=== PATIENT | female | born 1930 | race Caucasian/White ===

== ENCOUNTER 2019-06-21 16:53 | Inpatient (IN) | payer MEDICARE ==
[~2019-06-21] VITALS: Ht 157.5 cm; Wt 80.3 kg
[2019-06-21 16:00] VITALS: BP 138/64
[2019-06-21] MEDS ORDERED: ACETAMINOPHEN 650MG/20.3ML UDC PO PRN (17:30)
[2019-06-21 17:54] VITALS: BP 138/64
[2019-06-21] MEDS ORDERED: CARV6.2548 PO (18:40)
[2019-06-21] MEDS ORDERED: ALLO100T PO (18:40)
[2019-06-21] MEDS ORDERED: MENT3.5O TP (18:40)
[2019-06-21] MEDS ORDERED: AMLO10TA80 MT (18:40)
[2019-06-21] MEDS ORDERED: COLC0.6C3 PO (18:42)
[2019-06-21] MEDS ORDERED: FURO40TA5 PO (18:42)
[2019-06-21] MEDS ORDERED: DICL1ADH11 TD (18:42)
[2019-06-21] MEDS ORDERED: APIX2.5T PO (18:42)
[2019-06-21] MEDS ORDERED: MEGE40TA27 MT (18:43)
[2019-06-21] MEDS ORDERED: TIOT18CA3 IH (18:46)
[2019-06-21] MEDS ORDERED: ASCO500P18 PO (18:46)
[2019-06-21] MEDS ORDERED: SODI650T PO (18:46)
[2019-06-21] MEDS ORDERED: LEVA15HF4 IH (18:46)
[2019-06-21 20:00] VITALS: BP 141/59
[2019-06-21] MEDS: ALBUTEROL (0.083%) 2.5MG/3ML NEB HHN SCH (20:30)
[2019-06-21] MEDS: HYDRALAZINE HCL 100MG TABLET PO SCH (20:58)
[2019-06-21] MEDS: CARVEDILOL 6.25 MG TABLET PO SCH (20:58)
[2019-06-22 07:39] LABS: BASOPHILS % 0.6 % (0.0-2.0); EOSINOPHILS % 0.5 % (0.0-5.0); HEMATOCRIT. 26.5 % (36.0-48.0); LYMPHOCYTES % 9.3 % (20.0-50.0); MEAN CORPUSCULAR HEMOGLOBIN 34.1 pg (28.0-32.0); MEAN CORPUSCULAR VOLUME 100.3 fL (81.0-99.0); MEAN PLATELET VOLUME 8.2 fl (7.4-10.4); MONOCYTES % 5.5 % (2.0-8.0); NEUTROPHILS % 84.1 % (40.0-76.0); PLATELET 230 x1000/uL (130-400); RED BLOOD CELL COUNT 2.64 mill/uL (4.2-5.4); RED CELL DISTRIBUTION WIDTH 15.8 % (11.6-14.6)
[2019-06-22 07:46] LABS: CHLORIDE 110 mEq/L (98-107)
[2019-06-22] MEDS: ALBUTEROL (0.083%) 2.5MG/3ML NEB HHN SCH ×2 (08:06→16:44)
[2019-06-22] MEDS: HYDRALAZINE HCL 100MG TABLET PO SCH ×2 (08:06→20:43)
[2019-06-22] MEDS: SODIUM BICARBONATE 650 MG TABLET PO SCH ×3 (08:06→16:21)
[2019-06-22] MEDS: ALLOPURINOL 100 MG TABLET PO SCH (08:06)
[2019-06-22] MEDS: AMLODIPINE 10MG TABLET PO SCH (08:07)
[2019-06-22] MEDS: CARVEDILOL 6.25 MG TABLET PO SCH ×2 (08:07→20:42)
[2019-06-22 08:41] VITALS: BP 124/73
[2019-06-22] MEDS ORDERED: MEGESTROL ACETATE 400 MG/10 ML UDC PO SCH (09:00)
[2019-06-22] MEDS ORDERED: UMECLIDINIUM BROMIDE 1 INH BLST.W.DEV IH SCH (09:00)
[2019-06-22] MEDS: APIXABAN 2.5 MG TABLET PO SCH (16:22)
[2019-06-22 20:00] VITALS: BP 152/68
[2019-06-22 20:46] LABS: CLARITY URINE CLEAR (CLEAR); COLOR URINE YELLOW (YELLOW); KETONES URINE NEGATIVE (NEGATIVE); LEUKOCYTE ESTERASE URINE 2+ (NEGATIVE); NITRITE URINE NEGATIVE (NEGATIVE); OCCULT BLOOD URINE NEGATIVE (NEGATIVE); PH URINE 5.5 (4.5-8.0); PROTEIN URINE 1+ (NEGATIVE); SPECIFIC GRAVITY URINE 1.014 (1.005-1.030); UROBILINOGEN URINE 0.2 E.U./dL (0.2-1.0)
[2019-06-23] MEDS: MEGESTROL ACETATE 400 MG/10 ML UDC PO SCH ×3 (06:08→17:09)
[2019-06-23 07:13] LABS: HEMOGLOBIN. 8.7 g/dL (12.0-16.0); MEAN CORPUSCULAR HEMOGLOBIN 33.5 pg (28.0-32.0); MEAN CORPUSCULAR VOLUME 100.2 fL (81.0-99.0); PLATELET 234 x1000/uL (130-400); RED CELL DISTRIBUTION WIDTH 15.7 % (11.6-14.6)
[2019-06-23 07:23] LABS: CHLORIDE 111 mEq/L (98-107)
[2019-06-23 07:37] LABS: FOLIC ACID (FOLATE) SERUM 19.1 ng/mL (>5.38)
[2019-06-23 07:43] LABS: PHOSPHORUS 4.1 mg/dL (2.5-4.9)
[2019-06-23 07:44] LABS: LDL CHOLESTEROL 87 mg/dL (5-100)
[2019-06-23 07:47] LABS: HDL CHOLESTEROL 22 mg/dL (40-59); TOTAL IRON BINDING CAPACITY 382 ug/dL (250-450)
[2019-06-23 08:00] VITALS: BP 170/78
[2019-06-23] MEDS: ALBUTEROL (0.083%) 2.5MG/3ML NEB HHN SCH ×2 (09:37→17:23)
[2019-06-23] MEDS: HYDRALAZINE HCL 100MG TABLET PO SCH ×2 (09:51→21:31)
[2019-06-23] MEDS: AMLODIPINE 10MG TABLET PO SCH (09:52)
[2019-06-23] MEDS: ALLOPURINOL 100 MG TABLET PO SCH (09:52)
[2019-06-23] MEDS: SODIUM BICARBONATE 650 MG TABLET PO SCH ×3 (09:52→17:11)
[2019-06-23] MEDS: APIXABAN 2.5 MG TABLET PO SCH ×2 (09:52→17:12)
[2019-06-23] MEDS: CARVEDILOL 6.25 MG TABLET PO SCH ×2 (09:53→21:32)
[2019-06-23 12:52] LABS: PLATELET ESTIMATE NORMAL
[2019-06-23] MEDS ORDERED: LEVOFLOXACIN 250MG TABLET PO SCH (16:00)
[2019-06-23] MEDS ORDERED: SPIR25TA6 PO (16:03)
[2019-06-23] MEDS ORDERED: SACU1TAB7 PO (16:03)
[2019-06-23] MEDS ORDERED: HYDR100T26 PO (16:03)
[2019-06-23] MEDS: FERROUS SULFATE 325MG TABLET PO SCH (17:12)
[2019-06-23] MEDS: DOCUSATE SODIUM 100MG CAPSULE PO SCH (17:12)
[2019-06-23] MEDS: CYANOCOBALAMIN 1000MCG/ML VIAL IM SCH (17:13)
[2019-06-23] MEDS: LIDOCAINE 5% PATCH TOP SCH (17:14)
[2019-06-23] MEDS ORDERED: LACTULOSE 20G/30ML UDC PO PRN (20:45)
[2019-06-23 22:00] VITALS: BP 131/54
[2019-06-24 05:40] LABS: HEMATOCRIT. 25.7 % (36.0-48.0); HEMOGLOBIN. 8.8 g/dL (12.0-16.0); MEAN CORPUSCULAR HEMOGLOBIN 34.1 pg (28.0-32.0); PLATELET 220 x1000/uL (130-400); RED BLOOD CELL COUNT 2.57 mill/uL (4.2-5.4); RED CELL DISTRIBUTION WIDTH 15.7 % (11.6-14.6)
[2019-06-24] MEDS: ALBUTEROL (0.083%) 2.5MG/3ML NEB HHN SCH ×2 (07:40→14:53)
[2019-06-24] MEDS: CYANOCOBALAMIN 1000MCG/ML VIAL IM SCH (08:25)
[2019-06-24] MEDS: SODIUM BICARBONATE 650 MG TABLET PO SCH ×3 (08:25→16:39)
[2019-06-24] MEDS: MEGESTROL ACETATE 400 MG/10 ML UDC PO SCH ×2 (08:25→16:39)
[2019-06-24] MEDS: ASCORBIC ACID 500 MG TABLET PO SCH (08:26)
[2019-06-24] MEDS: AMLODIPINE 10MG TABLET PO SCH (08:26)
[2019-06-24] MEDS: HYDRALAZINE HCL 100MG TABLET PO SCH ×2 (08:26→21:12)
[2019-06-24] MEDS: FERROUS SULFATE 325MG TABLET PO SCH ×3 (08:26→16:39)
[2019-06-24] MEDS: CARVEDILOL 6.25 MG TABLET PO SCH ×2 (08:26→21:11)
[2019-06-24] MEDS: DOCUSATE SODIUM 100MG CAPSULE PO SCH ×2 (08:27→16:40)
[2019-06-24] MEDS: ALLOPURINOL 100 MG TABLET PO SCH (08:27)
[2019-06-24] MEDS: APIXABAN 2.5 MG TABLET PO SCH ×2 (08:27→16:39)
[2019-06-24 08:36] VITALS: BP 127/91
[2019-06-24] MEDS: LIDOCAINE 5% PATCH TOP SCH (09:00)
[2019-06-24] MEDS ORDERED: SORBITOL 70% SOLN 30ML PO ONE (09:45)
[2019-06-24] MEDS ORDERED: BISACODYL 10MG SUPP PR ONE (09:45)
[2019-06-24] MEDS ORDERED: SORBITOL 70% SOLN 30ML PO SCH (10:30)
[2019-06-24] MEDS ORDERED: BISACODYL 10MG SUPP PR SCH (10:30)
[2019-06-24 10:34] LABS: PLATELET ESTIMATE NORMAL
[2019-06-24 20:00] VITALS: BP 140/58
[2019-06-24] MEDS: POLYETHYLENE GLYCOL 3350 (17GM) 1 DOSE PACK PO SCH (21:00)
[2019-06-25 06:13] LABS: BASOPHILS % 0.5 % (0.0-2.0); EOSINOPHILS % 0.5 % (0.0-5.0); HEMOGLOBIN. 8.8 g/dL (12.0-16.0); LYMPHOCYTES % 8.1 % (20.0-50.0); MEAN CORPUSCULAR HEMOGLOBIN 33.9 pg (28.0-32.0); MEAN CORPUSCULAR VOLUME 100.2 fL (81.0-99.0); MEAN PLATELET VOLUME 8.1 fl (7.4-10.4); MONOCYTES % 8.5 % (2.0-8.0); NEUTROPHILS % 82.4 % (40.0-76.0); PLATELET 201 x1000/uL (130-400); RED CELL DISTRIBUTION WIDTH 15.6 % (11.6-14.6)
[2019-06-25 08:10] VITALS: BP 143/69
[2019-06-25] MEDS: MEGESTROL ACETATE 400 MG/10 ML UDC PO SCH ×2 (08:30→16:00)
[2019-06-25] MEDS: CARVEDILOL 6.25 MG TABLET PO SCH ×2 (08:30→22:30)
[2019-06-25] MEDS: ALLOPURINOL 100 MG TABLET PO SCH (08:31)
[2019-06-25] MEDS: ASCORBIC ACID 500 MG TABLET PO SCH (08:31)
[2019-06-25] MEDS: DOCUSATE SODIUM 100MG CAPSULE PO SCH ×2 (08:31→16:00)
[2019-06-25] MEDS: SODIUM BICARBONATE 650 MG TABLET PO SCH ×3 (08:31→16:00)
[2019-06-25] MEDS: HYDRALAZINE HCL 100MG TABLET PO SCH ×2 (08:31→21:00)
[2019-06-25] MEDS: AMLODIPINE 10MG TABLET PO SCH (08:31)
[2019-06-25] MEDS: FERROUS SULFATE 325MG TABLET PO SCH ×3 (08:31→16:00)
[2019-06-25] MEDS: APIXABAN 2.5 MG TABLET PO SCH ×2 (08:31→18:44)
[2019-06-25] MEDS: LIDOCAINE 5% PATCH TOP SCH (09:00)
[2019-06-25] MEDS: ALBUTEROL (0.083%) 2.5MG/3ML NEB HHN SCH ×2 (09:09→19:56)
[2019-06-25] MEDS: [UNRECOGNIZED DRUG - REMARK] ORI SCH (14:51)
[2019-06-25 20:00] VITALS: BP 142/70
[2019-06-25] MEDS: LINEZOLID 600MG TABLET PO SCH (22:29)
[2019-06-25] MEDS: POLYETHYLENE GLYCOL 3350 (17GM) 1 DOSE PACK PO SCH (22:29)
[2019-06-26 08:00] VITALS: BP 154/67
[2019-06-26] MEDS: LIDOCAINE 5% PATCH TOP SCH (09:00)
[2019-06-26] MEDS: ALBUTEROL (0.083%) 2.5MG/3ML NEB HHN SCH ×2 (10:25→16:35)
[2019-06-26] MEDS: LINEZOLID 600MG TABLET PO SCH ×2 (10:41→20:48)
[2019-06-26] MEDS: AMLODIPINE 10MG TABLET PO SCH (10:41)
[2019-06-26] MEDS: CARVEDILOL 6.25 MG TABLET PO SCH ×2 (10:41→21:00)
[2019-06-26] MEDS: SODIUM BICARBONATE 650 MG TABLET PO SCH ×3 (10:42→16:41)
[2019-06-26] MEDS: DOCUSATE SODIUM 100MG CAPSULE PO SCH ×2 (10:42→16:41)
[2019-06-26] MEDS: HYDRALAZINE HCL 100MG TABLET PO SCH ×2 (10:42→20:48)
[2019-06-26] MEDS: FERROUS SULFATE 325MG TABLET PO SCH ×3 (10:43→16:41)
[2019-06-26] MEDS: ASCORBIC ACID 500 MG TABLET PO SCH (10:43)
[2019-06-26] MEDS: APIXABAN 2.5 MG TABLET PO SCH ×2 (10:43→16:41)
[2019-06-26] MEDS: ALLOPURINOL 100 MG TABLET PO SCH (10:44)
[2019-06-26] MEDS: MEGESTROL ACETATE 400 MG/10 ML UDC PO SCH ×2 (10:45→16:41)
[2019-06-26] MEDS: [UNRECOGNIZED DRUG - REMARK] ORI SCH (11:25)
[2019-06-26] MEDS: LACTULOSE 20G/30ML UDC PO SCH ×2 (11:31→16:41)
[2019-06-26] MEDS ORDERED: BISACODYL 10MG SUPP PR PRN (14:00)
[2019-06-26] MEDS ORDERED: SORBITOL 70% SOLN 30ML PO NR (17:00)
[2019-06-26] MEDS ORDERED: BISACODYL 10MG SUPP PR NR (17:00)
[2019-06-26 20:00] VITALS: BP 133/56
[2019-06-26] MEDS: POLYETHYLENE GLYCOL 3350 (17GM) 1 DOSE PACK PO SCH (20:47)
[2019-06-27] MEDS ORDERED: LACTULOSE 20G/30ML UDC PO SCH (02:15)
[2019-06-27 06:46] LABS: BASOPHILS % 0.5 % (0.0-2.0); HEMATOCRIT. 25.8 % (36.0-48.0); HEMOGLOBIN. 8.8 g/dL (12.0-16.0); LYMPHOCYTES % 7.8 % (20.0-50.0); MEAN CORPUSCULAR HEMOGLOBIN 34.3 pg (28.0-32.0); MEAN CORPUSCULAR VOLUME 100.1 fL (81.0-99.0); MEAN PLATELET VOLUME 8.5 fl (7.4-10.4); MONOCYTES % 9.1 % (2.0-8.0); NEUTROPHILS % 81.6 % (40.0-76.0); PLATELET 193 x1000/uL (130-400); RED BLOOD CELL COUNT 2.58 mill/uL (4.2-5.4); RED CELL DISTRIBUTION WIDTH 15.2 % (11.6-14.6)
[2019-06-27] MEDS: ALBUTEROL (0.083%) 2.5MG/3ML NEB HHN SCH ×2 (07:46→14:28)
[2019-06-27 08:00] VITALS: BP 159/68
[2019-06-27 08:00] LABS: PHOSPHORUS 3.7 mg/dL (2.5-4.9)
[2019-06-27] MEDS: MEGESTROL ACETATE 400 MG/10 ML UDC PO SCH ×2 (08:49→16:55)
[2019-06-27] MEDS: APIXABAN 2.5 MG TABLET PO SCH ×2 (08:50→16:55)
[2019-06-27] MEDS: HYDRALAZINE HCL 100MG TABLET PO SCH ×2 (08:50→21:00)
[2019-06-27] MEDS: DOCUSATE SODIUM 100MG CAPSULE PO SCH ×2 (08:50→16:51)
[2019-06-27] MEDS: SODIUM BICARBONATE 650 MG TABLET PO SCH ×3 (08:50→16:55)
[2019-06-27] MEDS: ASCORBIC ACID 500 MG TABLET PO SCH (08:51)
[2019-06-27] MEDS: ALLOPURINOL 100 MG TABLET PO SCH (08:51)
[2019-06-27] MEDS: FERROUS SULFATE 325MG TABLET PO SCH ×3 (08:52→16:55)
[2019-06-27] MEDS: LINEZOLID 600MG TABLET PO SCH ×2 (08:52→21:26)
[2019-06-27] MEDS: AMLODIPINE 10MG TABLET PO SCH (08:53)
[2019-06-27] MEDS: LIDOCAINE 5% PATCH TOP SCH (08:53)
[2019-06-27] MEDS: CARVEDILOL 6.25 MG TABLET PO SCH ×2 (08:53→21:27)
[2019-06-27] MEDS: LACTULOSE 20G/30ML UDC PO SCH (08:56)
[2019-06-27] MEDS: [UNRECOGNIZED DRUG - REMARK] ORI SCH (13:03)
[2019-06-27] MEDS: POLYETHYLENE GLYCOL 3350 (17GM) 1 DOSE PACK PO SCH (16:55)
[2019-06-27 20:00] VITALS: BP 136/59
[2019-06-28 08:00] VITALS: BP 156/70
[2019-06-28] MEDS: LIDOCAINE 5% PATCH TOP SCH (09:00)
[2019-06-28] MEDS: POLYETHYLENE GLYCOL 3350 (17GM) 1 DOSE PACK PO SCH ×2 (09:49→16:52)
[2019-06-28] MEDS: SODIUM BICARBONATE 650 MG TABLET PO SCH ×3 (09:49→17:04)
[2019-06-28] MEDS: MEGESTROL ACETATE 400 MG/10 ML UDC PO SCH ×2 (09:50→16:52)
[2019-06-28] MEDS: AMLODIPINE 10MG TABLET PO SCH (09:50)
[2019-06-28] MEDS: LINEZOLID 600MG TABLET PO SCH ×2 (09:51→21:57)
[2019-06-28] MEDS: ALLOPURINOL 100 MG TABLET PO SCH (09:51)
[2019-06-28] MEDS: CARVEDILOL 6.25 MG TABLET PO SCH ×2 (09:51→21:58)
[2019-06-28] MEDS: HYDRALAZINE HCL 100MG TABLET PO SCH ×2 (09:51→21:57)
[2019-06-28] MEDS: ASCORBIC ACID 500 MG TABLET PO SCH (09:51)
[2019-06-28] MEDS: FERROUS SULFATE 325MG TABLET PO SCH ×3 (09:51→17:04)
[2019-06-28] MEDS: APIXABAN 2.5 MG TABLET PO SCH ×2 (09:51→16:52)
[2019-06-28] MEDS: DOCUSATE SODIUM 100MG CAPSULE PO SCH ×2 (09:51→16:52)
[2019-06-28] MEDS: ALBUTEROL (0.083%) 2.5MG/3ML NEB HHN SCH ×2 (10:00→14:01)
[2019-06-28] MEDS: [UNRECOGNIZED DRUG - REMARK] ORI SCH (10:18)
[2019-06-28] MEDS: FUROSEMIDE 20MG TABLET PO SCH (10:18)
[2019-06-28 20:00] VITALS: BP 146/57
[2019-06-29 04:11] LABS: 25-HYDROXY VITAMIN D3 30 ng/mL (.)
[2019-06-29 07:00] VITALS: BP 140/90
[2019-06-29 07:13] LABS: BASOPHILS % 0.5 % (0.0-2.0); EOSINOPHILS % 0.9 % (0.0-5.0); HEMATOCRIT. 25.7 % (36.0-48.0); HEMOGLOBIN. 8.7 g/dL (12.0-16.0); LYMPHOCYTES % 10.7 % (20.0-50.0); MEAN CORPUSCULAR HEMOGLOBIN 34.1 pg (28.0-32.0); MEAN CORPUSCULAR VOLUME 100.6 fL (81.0-99.0); MEAN PLATELET VOLUME 8.6 fl (7.4-10.4); NEUTROPHILS % 79.9 % (40.0-76.0); PLATELET 185 x1000/uL (130-400); RED BLOOD CELL COUNT 2.56 mill/uL (4.2-5.4)
[2019-06-29 07:49] LABS: PHOSPHORUS 3.8 mg/dL (2.5-4.9)
[2019-06-29] MEDS: [UNRECOGNIZED DRUG - REMARK] ORI SCH (09:02)
[2019-06-29] MEDS: POLYETHYLENE GLYCOL 3350 (17GM) 1 DOSE PACK PO SCH ×2 (09:02→16:56)
[2019-06-29] MEDS: ASCORBIC ACID 500 MG TABLET PO SCH (09:03)
[2019-06-29] MEDS: SODIUM BICARBONATE 650 MG TABLET PO SCH ×3 (09:03→16:57)
[2019-06-29] MEDS: MEGESTROL ACETATE 400 MG/10 ML UDC PO SCH ×2 (09:03→16:56)
[2019-06-29] MEDS: ALLOPURINOL 100 MG TABLET PO SCH (09:04)
[2019-06-29] MEDS: FUROSEMIDE 20MG TABLET PO SCH (09:04)
[2019-06-29] MEDS: APIXABAN 2.5 MG TABLET PO SCH ×2 (09:04→16:57)
[2019-06-29] MEDS: HYDRALAZINE HCL 100MG TABLET PO SCH ×2 (09:04→20:07)
[2019-06-29] MEDS: CARVEDILOL 6.25 MG TABLET PO SCH ×2 (09:04→20:08)
[2019-06-29] MEDS: FERROUS SULFATE 325MG TABLET PO SCH ×3 (09:05→16:57)
[2019-06-29] MEDS: AMLODIPINE 10MG TABLET PO SCH (09:05)
[2019-06-29] MEDS: DOCUSATE SODIUM 100MG CAPSULE PO SCH ×2 (09:05→16:57)
[2019-06-29] MEDS: LIDOCAINE 5% PATCH TOP SCH (09:06)
[2019-06-29] MEDS: ALBUTEROL (0.083%) 2.5MG/3ML NEB HHN SCH ×3 (10:00→14:26)
[2019-06-29 20:00] VITALS: BP 146/55
[2019-06-30 06:23] LABS: BASOPHILS % 0.5 % (0.0-2.0); HEMATOCRIT. 28.3 % (36.0-48.0); HEMOGLOBIN. 9.5 g/dL (12.0-16.0); LYMPHOCYTES % 11.9 % (20.0-50.0); MEAN CORPUSCULAR HEMOGLOBIN 33.6 pg (28.0-32.0); MEAN PLATELET VOLUME 8.1 fl (7.4-10.4); MONOCYTES % 6.2 % (2.0-8.0); NEUTROPHILS % 80.4 % (40.0-76.0); PLATELET 203 x1000/uL (130-400); RED BLOOD CELL COUNT 2.83 mill/uL (4.2-5.4); RED CELL DISTRIBUTION WIDTH 15.2 % (11.6-14.6)
[2019-06-30 06:25] LABS: PHOSPHORUS 3.4 mg/dL (2.5-4.9)
[2019-06-30 08:00] VITALS: BP 129/54
[2019-06-30] MEDS: FERROUS SULFATE 325MG TABLET PO SCH (08:50)
[2019-06-30] MEDS: SODIUM BICARBONATE 650 MG TABLET PO SCH (08:50)
[2019-06-30] MEDS: MEGESTROL ACETATE 400 MG/10 ML UDC PO SCH (08:50)
[2019-06-30] MEDS: ASCORBIC ACID 500 MG TABLET PO SCH (08:50)
[2019-06-30] MEDS: HYDRALAZINE HCL 100MG TABLET PO SCH (08:50)
[2019-06-30] MEDS: ALLOPURINOL 100 MG TABLET PO SCH (08:51)
[2019-06-30] MEDS: CARVEDILOL 6.25 MG TABLET PO SCH (08:51)
[2019-06-30] MEDS: AMLODIPINE 10MG TABLET PO SCH (08:51)
[2019-06-30] MEDS: FUROSEMIDE 20MG TABLET PO SCH (08:51)
[2019-06-30] MEDS: APIXABAN 2.5 MG TABLET PO SCH (08:51)
[2019-06-30] MEDS: LIDOCAINE 5% PATCH TOP SCH (08:52)
[2019-06-30] MEDS: [UNRECOGNIZED DRUG - REMARK] ORI SCH (08:57)
[2019-06-30] MEDS: ALBUTEROL (0.083%) 2.5MG/3ML NEB HHN SCH (09:30)
[2019-06-30 09:57] VITALS: BP 129/54
== END 2019-06-30 12:25 | disposition home health service (06) | DRG 558 ==
PROVIDERS: ADMIT Physical Medicine & Rehabilitation Spinal Cord Injury Medicine; ATTEND Internal Medicine Critical Care Medicine
DX: M62.82 Rhabdomyolysis (principal); N17.9 Acute kidney failure, unspecified; N39.0 Urinary tract infection, site not specified; E46 Unspecified protein-calorie malnutrition; I48.20 Chronic atrial fibrillation, unspecified; I50.42 Chronic combined systolic (congestive) and diastolic (congestive) heart failure; E87.2 Acidosis; I42.0 Dilated cardiomyopathy; Z16.21 Resistance to vancomycin; N18.5 Chronic kidney disease, stage 5; J44.9 Chronic obstructive pulmonary disease, unspecified; B96.1 Klebsiella pneumoniae [K. pneumoniae] as the cause of diseases classified elsewhere; D63.1 Anemia in chronic kidney disease; E86.0 Dehydration; B95.2 Enterococcus as the cause of diseases classified elsewhere; E87.5 Hyperkalemia; K59.00 Constipation, unspecified; M10.9 Gout, unspecified; M71.22 Synovial cyst of popliteal space [Baker], left knee; R29.6 Repeated falls; Z77.22 Contact with and (suspected) exposure to environmental tobacco smoke (acute) (chronic); Z96.1 Presence of intraocular lens; R53.81 Other malaise; F06.31 Mood disorder due to known physiological condition with depressive features; D50.9 Iron deficiency anemia, unspecified; W18.39XA Other fall on same level, initial encounter; S93.401A Sprain of unspecified ligament of right ankle, initial encounter; Z79.899 Other long term (current) drug therapy; Z82.49 Family history of ischemic heart disease and other diseases of the circulatory system; Z85.528 Personal history of other malignant neoplasm of kidney; Z90.5 Acquired absence of kidney; Z95.810 Presence of automatic (implantable) cardiac defibrillator; Z98.41 Cataract extraction status, right eye; Z98.42 Cataract extraction status, left eye; Y93.89 Activity, other specified; Y92.89 Other specified places as the place of occurrence of the external cause; Y99.8 Other external cause status; Z68.32 Body mass index [BMI] 32.0-32.9, adult
CPT/HCPCS: 36415; 71045; 73610; 80048; 80061; 81003; 82270; 82306; 82570; 82607; 82728; 82746; 83036; 83540; 83550; 83735; 84100; 84134; 84300; 84443; 84550; 87077; 87186; 93970; 93971; 94618; 94640; 97110; 97112; 97116; 97150; 97162; 97166; 97530; 97535; J3420; J7040; J7611